=== PATIENT | female | born 1965 | race Caucasian/White ===

== ENCOUNTER 2018-03-15 19:12 | Emergency (ER) | payer BC ==
[2018-03-15 19:33] VITALS: BP 151/98; PULSE 77; TEMP 98.2; BMI 36.0
[2018-03-15 19:41] LABS: PH,URINE 5.5 (4.5-8); URINE APPEARANCE Clear; URINE BILIRUBIN Negative (NEGATIVE); URINE COLOR Yellow; URINE GLUCOSE (UA) Negative (NEGATIVE); URINE KETONE Negative (NEGATIVE); URINE LEUK ESTERASE Negative (NEGATIVE); URINE NITRITE Negative (NEGATIVE); URINE PROTEIN Negative (NEGATIVE); URINE UROBILINOGEN 0.2 (0.2-1.0)
--- NOTE | 2018-03-15 20:13 | PDOC ---
History of Present Illness - General History Source: Patient Exam Limitations: No Limitations - History of Present Illness Initial Comments: 03/15/18 21:01 The patient is a 52 year old female with a significant past medical history of HTN, HLD, hypothyroid, and restless leg syndrome who comes into the ED with back pain for several months and urinary retention for several weeks. Patient reports intermittent bilateral lower back pain with radiation to her flank, worsened on the left side. Patient notes her back pain is worsened when she gets out of bed. She states her back pain is progressively worsening and has now been constant for one month. She reports she developed urinary retention several weeks ago where she has no sensation to urinate until all of the sudden she gets an urge to go. Patient also reports intermittent nausea for the past several weeks and had 5 episodes of nonbloody vomiting on Sunday that has since resolved. Patient states she has been noncompliant to taking her medication and only takes her medication for restless leg syndrome. She also states she has not gotten her menstrual period for several months and is concerned she is going through menopause. Denies recent injury. Denies incontinence. Denies genital or lower extremity numbness/weakness/tingling. Denies fever or chills. Denies chest pain or shortness of breath. Denies abdominal pain, diarrhea, or hematochezia. Denies any other symptoms. Social hx: Denies the use of alcohol, tobacco or recreational drugs. <Basilio Glass - Last Filed: 03/15/18 22:19> <Mya Arboleda - Last Filed: 03/16/18 00:08> - General Chief Complaint: Pain, Acute Stated Complaint: LOWER BACK PAIN,POSS. URINARY TRACT INFECTION Time Seen by Provider: 03/15/18 19:55 Past History <Basilio Glass - Last Filed: 03/15/18 22:19> - Past Medical History COPD: No HTN: Yes Hypercholesterolemia: Yes Other medical history: RESTLESS LEG SYNDROME - Suicide/Smoking/Psychosocial Hx Smoking History: Never smoked Have you smoked in the past 12 months: No Information on smoking cessation initiated: No Hx Alcohol Use: Yes (OCCAS.) Drug/Substance Use Hx: No Substance Use Type: None <Mya Arboleda - Last Filed: 03/16/18 00:08> - Past Medical History Allergies/Adverse Reactions: Allergies Allergy/AdvReac Type Severity Reaction Status Date / Time No Known Allergies Allergy Verified 03/15/18 19:14 Home Medications: Ambulatory Orders Aliskiren/Hydrochlorothiazide [Tekturna Hct 300-12.5 Mg Tab] 1 each PO tablet 10/05/14 Amlodipine Bes/Olmesartan Med [Nat 10-20 Mg Tablet] 1 each PO tablet 10/05/14 B12/Levomefolate Calcium/B-6 [Folbic Rf Tablet] 1 each PO tablet 10/05/14 Cholecalciferol (Vitamin D3) [Vitamin D] 400 unit PO capsule 10/05/14 Levothyroxine Sodium [Synthroid] 50 mcg PO tablet 10/05/14 Nadolol [Corgard -] 40 mg PO tablet 10/05/14 Omeprazole 40 mg PO capsule 10/05/14 Pramipexole Di-HCl [Mirapex] 1 mg PO tablet 10/05/14 Rosuvastatin Calcium [Crestor] 5 mg PO tablet 10/05/14 Diclofenac Sodium [Voltaren -] 75 mg PO BID PRN #20 tablet. 03/15/18 Review of Systems - Review of Systems Able to Perform ROS?: Yes Comments:: 03/15/18 21:01 CONSTITUTIONAL: Absent: fever, chills, diaphoresis, generalized weakness, malaise, loss of appetite HEENT: Absent: rhinorrhea, nasal congestion, throat pain, throat swelling, difficulty swallowing, mouth swelling, ear pain, eye pain, visual Changes CARDIOVASCULAR: Absent: chest pain, syncope, palpitations, irregular heart rate, lightheadedness , peripheral edema RESPIRATORY: Absent: cough, shortness of breath, dyspnea with exertion, orthopnea, wheezing, stridor, hemoptysis GASTROINTESTINAL: + nausea, vomiting Absent: abdominal pain, abdominal distension, diarrhea, constipation, melena, hematochezia GENITOURINARY: + urinary retention Absent: dysuria, frequency, urgency, hesitancy, hematuria, flank pain, genital pain MUSCULOSKELETAL: + back pain Absent: joint swelling SKIN: Absent: rash, itching, pallor HEMATOLOGIC/IMMUNOLOGIC: Absent: easy bleeding, easy bruising, lymphadenopathy, frequent infections ENDOCRINE: Absent: unexplained weight gain, unexplained weight loss, heat intolerance, cold intolerance NEUROLOGIC: Absent: headache, focal weakness or paresthesias, dizziness, unsteady gait, seizure, mental status changes, bladder or bowel incontinence PSYCHIATRIC: Absent: anxiety, depression, suicidal or homicidal ideation, hallucinations. All Other Systems: Reviewed and Negative <Basilio Glass - Last Filed: 03/15/18 22:19> *Physical Exam - Vital Signs Last Vital Signs Temp Pulse Resp BP Pulse Ox 98.2 F 77 18 151/98 99 03/15/18 19:15 03/15/18 19:15 03/15/18 19:15 03/15/18 19:15 03/15/18 19:15 - Physical Exam Comments: 03/15/18 21:01 GENERAL: The patient is awake, alert, and fully oriented, in no acute distress. HEAD: Normal with no signs of trauma. EYES: Pupils equal, round and reactive to light, extraocular movements intact, sclera anicteric, conjunctiva clear with no pallor. ENT: Ears normal, nares patent, oropharynx clear without exudates. Moist mucous membranes. NECK: Normal range of motion, supple without lymphadenopathy, JVD, or masses. LUNGS: Breath sounds equal, clear to auscultation bilaterally. No wheeze/ crackles. HEART: Regular rate and rhythm, normal S1 and S2 without murmur or rub. ABDOMEN: Soft/nontender/nondistended. BS wnl. No guarding or rebound. No palpable masses. No hepatosplenomegaly. EXTREMITIES: Normal range of motion, no edema. No clubbing or cyanosis. No cords, erythema, or tenderness. No pain on straight leg raise bilaterally. BACK: + Mild tenderness of the central lower lumbar spine and sacroiliac joint bilaterally. Left CVA tenderness NEUROLOGICAL: Cranial nerves II through XII grossly intact. Normal speech, normal gait. PSYCH: Normal mood, normal affect. SKIN: Warm, Dry, normal turgor, no rashes or lesions noted. <Basilio Glass - Last Filed: 03/15/18 22:19> - Vital Signs Last Vital Signs Temp Pulse Resp BP Pulse Ox 98.2 F 77 18 151/98 99 03/15/18 19:15 03/15/18 19:15 03/15/18 19:15 03/15/18 19:15 03/15/18 19:15 <Mya Arboleda - Last Filed: 03/16/18 00:08> ED Treatment Course - ADDITIONAL ORDERS Additional order review: Laboratory Results 03/15/18 03/15/18 19:20 19:20 Urine Color Yellow Urine Appearance Clear Urine pH 5.5 Ur Specific [place] >= 1.030 H Urine Protein Negative Urine Glucose (UA) Negative Urine Ketones Negative Urine Blood 2+ H Urine Nitrite Negative Urine Bilirubin Negative Urine Urobilinogen 0.2 Ur Leukocyte Esterase Negative Urine RBC 5-10 Urine WBC 2-5 Ur Epithelial Cells Few Urine Bacteria Few Urine HCG, Qual Negative - Medications Given in the ED: ED Medications Discontinued Medications Generic Name Dose Route Start Last Admin Trade Name Dasha PRN Reason Stop Dose Admin Ketorolac Tromethamine 30 mg 03/15/18 20:24 03/15/18 20:32 Toradol Injection - IVPUSH 03/15/18 20:25 30 mg ONCE ONE Administration <Basilio Glass - Last Filed: 03/15/18 22:19> - ADDITIONAL ORDERS Additional order review: Laboratory Results 03/15/18 03/15/18 19:20 19:20 Urine Color Yellow Urine Appearance Clear Urine pH 5.5 Ur Specific [place] >= 1.030 H Urine Protein Negative Urine Glucose (UA) Negative Urine Ketones Negative Urine Blood 2+ H Urine Nitrite Negative Urine Bilirubin Negative Urine Urobilinogen 0.2 Ur Leukocyte Esterase Negative Urine HCG, Qual Negative - RADIOLOGY Radiology Studies Ordered: Category Date Time Status SPIRAL- RENAL-STONE CT [CT] Stat CT Scan 03/15/18 19:58 Ordered <Mya Arboleda - Last Filed: 03/16/18 00:08> Progress Note - Progress Note Progress Note: Documentation has been prepared under my direction and personally reviewed by me in its entirety. I attest that this documented accurately reflects all work, treatment, procedures and medical decision making performed by me. <Mya Arboleda - Last Filed: 03/16/18 00:08> Medical Decision Making - Medical Decision Making As noted above, this 52-year-old woman with a history of hypertension/ hyperlipidemia/restless leg syndrome presents with a few month history of bilateral lower back pain. There is some extension of the pain to the left flank area and patient admits that she is worried about "a problem with the kidney". She has not had any dysuria/hematuria. She has had some intermittent urinary urgency after not urinating for a long period of time during the day, but on closer questioning does not have persistent urinary retention symptoms. She denies pain/paresthesias/numbness of the groin or lower extremities. She has not taken any medication for her pain, stating that she "does not like taking medications". In fact, a few weeks ago, she stopped taking all her medications except the one that had been prescribed for her restless leg syndrome. Exam as noted Urinalysis positive for 3+ blood on dipstick and microscopic exam showed 5-10 RBCs/2-3 WBCs/few epi/few bacteria. Because of the presence of flank pain and microscopic hematuria, renal stone protocol CT performed to evaluate for ureteral stone. Urine C&S sent. CT spiral, renal stone protocol interpretation by Dr. Baxter of radiology staff : 1 mm nonobstructing left renal calculus. No ureteral stone noted. There was a 4 x 2.3 cm fluid attenuation intraluminal focus in the left middle abdominal small bowel loop without evidence of obstruction (no proximal bowel dilatation) . No other abnormality is solid organs or intestines seen. There was moderate to marked asymmetric L3-L4/L4L5 degenerative disc space narrowing. Toradol 30 mg IV given for analgesia, as well as 1 L normal saline IV. Patient felt significantly better after Toradol 30 mg IV. Clinical presentation most consistent with flareup of marked degenerative disc disease of the lower lumbar spine. Diclofenac 75 mg twice a prescription sent to her pharmacy. In the past, Dr. Barrios (who treats the patient for her restless leg syndrome) has also evaluated the patient for her lower back pain ( MRI performed 10/02/[address] Barrios). She should follow-up with him within the next 5-7 days. She should also follow up with her general medical doctor, , for full evaluation of the small intestine CT finding. She should return to the ER if her symptoms worsen. <Mya Arboleda - Last Filed: 03/16/18 00:08> *DC/Admit/Observation/Transfer - Attestations Scribe Attestion: 03/15/18 21:01 Documentation prepared by Basilio Glass, acting as anesthesiology medical doctor for Mya Arboleda MD <Basilio Glass - Last Filed: 03/15/18 22:19> <Mya Arboleda - Last Filed: 03/16/18 00:08> Diagnosis at time of Disposition: Lumbosacral disc disease - Discharge Dispostion Disposition: HOME Condition at time of disposition: Stable - Prescriptions Prescriptions: Diclofenac Sodium [Voltaren -] 75 mg PO BID PRN #[address] tablet[address] EDUARDO Reason: Back Pain - Referrals Referrals: Malik Barrios MD [Staff Physician] - - Patient Instructions Printed Discharge Instructions: Low Back Pain Additional Instructions: drink plenty of water continue medications as prescribed Diclofenac 75 twice a day as needed for pain;take with food followup with Dr Barrios within next 5 days regarding back pain followup with Dr Darling within 1 week Return to ER if you have severe pain/persistent difficulty urinating/groin numbness
[2018-03-15] MEDS ORDERED: SODIUM CHLORIDE 1,000 ML IV STA (20:24)
[2018-03-15] MEDS ORDERED: KETOROLAC TROMETHAMINE 30 MG/1 ML VIAL IVPUSH ONE (20:24)
[2018-03-15] MEDS ORDERED: KETOROLAC TROMETHAMINE 30 MG/1 ML VIAL ONE (20:27)
[2018-03-15 20:41] LABS: EPI CELLS FEW /HPF; URINE BACTERIA FEW /hpf (NEGATIVE)
== END 2018-03-15 22:01 | disposition home or self-care (01) ==
LOC: FER 19:12
PROC: 3E0333Z Introduction of Anti-inflammatory into Peripheral Vein, Percutaneous Approach (ICD-10-PCS; principal; 2018-03-15)
PROC: 3E0337Z Introduction of Electrolytic and Water Balance Substance into Peripheral Vein, Percutaneous Approach (ICD-10-PCS; 2018-03-15)
DX: M51.87 Other intervertebral disc disorders, lumbosacral region (principal); I10 Essential (primary) hypertension; E78.5 Hyperlipidemia, unspecified; G25.81 Restless legs syndrome
CPT/HCPCS: 74176; 81003; 81015; 84703; 87086; 99281-25; J7030

== ENCOUNTER 2018-12-21 21:23 | Emergency (ER) | payer BC ==
[2018-12-21] MEDS ORDERED: ONDANSETRON 4 MG/2 ML VIAL IVPB ONE (21:40)
[2018-12-21] MEDS ORDERED: morphine CARPU-JECT 2 MG/1 ML DISP.SYRIN IVPUSH ONE ×2 (21:40→23:50)
[2018-12-21] MEDS ORDERED: SODIUM CHLORIDE 1,000 ML IV ONE (21:40)
[2018-12-21] MEDS ORDERED: KETOROLAC TROMETHAMINE 30 MG/1 ML VIAL IVPUSH ONE (21:42)
[2018-12-21 21:46] VITALS: BP 175/100; PULSE 70; TEMP 98.2; BMI 36.8
[2018-12-21 21:51] LABS: HCG,QUALITATIVE URINE Negative
[2018-12-21] MEDS ORDERED: ONDANSETRON 4 MG/2 ML VIAL ONE (21:54)
[2018-12-21] MEDS ORDERED: KETOROLAC TROMETHAMINE 30 MG/1 ML VIAL ONE (21:54)
[2018-12-21] MEDS ORDERED: morphine SULFATE 4 MG/ML VIAL ONE (21:54)
[2018-12-21 22:12] LABS: BASO % 0.6 % (0-2.0); EOS % 1.8 % (0-4.5); HEMOGLOBIN 12.9 GM/dl (10.7-15.3); LYMPH % 14.5 % (8-40); MCHC 33.2 g/dl (32.0-36.0); MEAN CELL VOLUME 87.4 fl (80-96); MEAN PLT VOLUME 8.3 fl (7.5-11.1); MONO % 6.2 % (3.8-10.2); NEUT % 76.9 % (42.8-82.8); PLATELET COUNT 350 K/MM3 (134-434); RBC 4.46 M/mm3 (3.60-5.2); RDW 12.4 % (11.6-15.6); WHITE BLOOD COUNT 12.8 K/mm3 (4.0-10.8)
[2018-12-21 22:22] LABS: CALCIUM OXALATE CRYSTALS MODERATE /hpf (NONE SEEN); EPITHELIAL CELLS MODERATE /hpf
[2018-12-21 22:33] LABS: ALBUMIN 4.1 g/dl (3.4-5.0); BILIRUBIN,TOTAL 0.7 mg/dl (0.2-1); CALCIUM 8.8 mg/dl (8.5-10); CREATININE 0.7 mg/dl (0.55-1.3); POTASSIUM 3.7 mmol/L (3.5-5.1); TOT PROT 7.3 g/dl (6.4-8.2)
--- NOTE | 2018-12-21 23:45 | PDOC ---
Documentation entered by Jeni Mccall SCRIBE, acting as scribe for Roxana Reynoso MD. Roxana Reynoso MD: This documentation has been prepared by the Stefany appiah Xhesika, SCRIBE, under my direction and personally reviewed by me in its entirety. I confirm that the documentation accurately reflects all work, treatment, procedures, and medical decision making performed by me. History of Present Illness - General Chief Complaint: Pain Stated Complaint: RIGHT ABD PAIN Time Seen by Provider: 12/21/18 21:28 History Source: Patient Exam Limitations: No Limitations - History of Present Illness Initial Comments: 12/21/18 21:49 The patient is a 53 year old female, with a significant past medical history of HTN, HLD, hypothyroid, renal stones, and restless leg syndrome who presents to the emergency department with R flank pain and nausea. The patient states the pain began intermittently at her lower back with radiation to her flank, worsened on the right side.The patient states she was fine all day until after eating dinner which prompted her arrival to the ED. The patient denies chest pain, shortness of breath, headache or dizziness. The patient denies fever, chills, vomiting, diarrhea or constipation. The patient denies dysuria, frequency, urgency or hematuria. PAST SURGICAL HISTORY: no significant history FAMILY HISTORY: no pertinent history SOCIAL HISTORY: Pt lives with family and is employed. MEDICATIONS: reviewed ALLERGIES: As per nursing notes 12/21/18 23:39 Assessment and plan: This is a 53-year-old female who comes in complaining of right flank pain. Patient has history of renal colic in the past. Patient was very uncomfortable had some nausea but no vomiting. Patient had work up including CBC, comp, CAT scan. The CAT scan did show 1 mm stone distal UVJ area. Patient received fluids pain medications and there was no evidence of infection in her urine. Patient discharged with prescription for Percocet and will follow-up with her urologist. Past History - Past Medical History Allergies/Adverse Reactions: Allergies Allergy/AdvReac Type Severity Reaction Status Date / Time No Known Allergies Allergy Verified 03/15/18 19:14 Home Medications: Ambulatory Orders Aliskiren/Hydrochlorothiazide [Tekturna Hct 300-12.5 Mg Tab] 1 each PO DAILY tablet 10/05/14 Amlodipine Bes/Olmesartan Med [Nat 10-20 Mg Tablet] 1 each PO DAILY tablet Levothyroxine Sodium [Synthroid] 50 mcg PO DAILY tablet 10/05/14 Nadolol [Corgard -] 40 mg PO DAILY tablet 10/05/14 Omeprazole 40 mg PO DAILY capsule 10/05/14 Pramipexole Di-HCl [Mirapex] 1 mg PO DAILY tablet 10/05/14 Rosuvastatin Calcium [Crestor] 5 mg PO DAILY tablet 10/05/14 Ondansetron [Zofran *Odt*] 8 mg SL TID #12 od.tablet 12/21/18 Oxycodone HCl/Acetaminophen [Percocet 5-325 mg Tablet] 1 - 2 tab PO Q4H #12 tablet MDD 8 12/21/18 Pramipexole Dihydrochloride [Mirapex -] 1.5 mg PO HS 12/21/18 COPD: No HTN: Yes Hypercholesterolemia: Yes - Suicide/Smoking/Psychosocial Hx Smoking History: Never smoked Have you smoked in the past 12 months: No Hx Alcohol Use: Yes (OCCAS.) Drug/Substance Use Hx: No Substance Use Type: None Review of Systems - Review of Systems Able to Perform ROS?: Yes Comments:: 12/21/18 21:50 General: No fevers or chills, no weakness, no weight loss HEENT: No change in vision. No sore throat,. No ear pain CardioVascular: No chest pain or shortness of breath Respiratory:No cough, or wheezing. Gastrointestinal: no nausea, vomiting, diarrhea or constipation, No rectal bleeding Genitourinary: No dysuria, hematuria, or frequency Musculoskeletal: (+) R flank pain. No joint or muscle pain or swelling Neurologic: No headache, vertigo, dizziness or loss of consciousness Psychiatric: nor depression Skin: No rashes or easy bruising Endocrine: no increased thirst or abnormal weight change Allergic: no skin or latex allergy All other systems reviewed and normal *Physical Exam - Physical Exam Comments: 12/21/18 21:50 GENERAL: The patient is awake, alert, and fully oriented, in no acute distress. HEAD: Normal with no signs of trauma. EYES: Pupils equal, round and reactive to light, extraocular movements intact, sclera anicteric, conjunctiva clear. ABDOMEN: (+) R flank and R CVA tenderness on palpation. EXTREMITIES: Normal range of motion, no edema. NEUROLOGICAL: Normal speech, normal gait. PSYCH: Normal mood, normal affect. SKIN: Warm, Dry, normal turgor, no rashes or lesions noted. ED Treatment Course - LABORATORY CBC & Chemistry Diagram: 12/21/18 21:55 12/21/18 21:55 *DC/Admit/Observation/Transfer Diagnosis at time of Disposition: Renal colic on right side - Discharge Dispostion Disposition: HOME Condition at time of disposition: Good Decision to Admit order: No - Referrals Referrals: Anthony Darling MD [Primary Care Provider] - - Patient Instructions Printed Discharge Instructions: DI for Prescription Opioid Use Additional Instructions: For the pain U can take ibuprofen or Aleve. However if you need something stronger U can take Percocet one or 2 tablets every 4-6 hours as needed. For the nausea take Zofran 1 tablet as often as 3 times a day. Stay well-hydrated drink plenty of fluids. Return to the emergency department immediately with ANY new, persistent or worsening symptoms. Continue any medications as previously prescribed by your physician. You should follow up with your primary doctor as soon as possible regarding today's emergency department visit. . Please make sure your doctor reviews the results of your emergency evaluation. Thank you for coming to the Emergency Department today for your care. It was a pleasure to see you today. Please note that your evaluation is INCOMPLETE until you follow-up with your doctor. - Post Discharge Activity
[2018-12-22] MEDS ORDERED: morphine SULFATE 4 MG/ML VIAL ONE (00:09)
== END 2018-12-22 00:26 | disposition home or self-care (01) ==
LOC: FER 21:23
PROC: 3E0333Z Introduction of Anti-inflammatory into Peripheral Vein, Percutaneous Approach (ICD-10-PCS; principal; 2018-12-21)
PROC: 3E033NZ Introduction of Analgesics, Hypnotics, Sedatives into Peripheral Vein, Percutaneous Approach (ICD-10-PCS; 2018-12-21)
PROC: 3E033GC Introduction of Other Therapeutic Substance into Peripheral Vein, Percutaneous Approach (ICD-10-PCS; 2018-12-21)
PROC: 3E0337Z Introduction of Electrolytic and Water Balance Substance into Peripheral Vein, Percutaneous Approach (ICD-10-PCS; 2018-12-21)
DX: N20.0 Calculus of kidney (principal); I10 Essential (primary) hypertension; E78.00 Pure hypercholesterolemia, unspecified; E78.5 Hyperlipidemia, unspecified; E03.9 Hypothyroidism, unspecified; G25.81 Restless legs syndrome
CPT/HCPCS: 36415; 74176-TC; 80053; 81003; 81015; 84703; 85025; 99283-25; J7030

== ENCOUNTER 2020-09-27 04:16 | Day surgery (SDC) | payer BC ==
[2020-09-23 09:46] VITALS: BMI 36.8
[2020-09-27] MEDS ORDERED: MIDAZOLAM HCL 2 MG/2 ML SINGLE DOSE VIAL ONE ×3 (09:53→09:56)
[2020-09-27] MEDS ORDERED: DEXAMETHASONE SOD PHOSPHATE 4 MG/1 ML VIAL ONE (09:55)
[2020-09-27 10:26] VITALS: TEMP 97.8
[2020-09-27 12:19] VITALS: BP 122/76; PULSE 64
== END 2020-09-27 12:05 | disposition home or self-care (01) ==
LOC: JASU-SURG 04:16
PROVIDERS: ATTEND Urology
PROC: 0TF4XZZ Fragmentation in Left Kidney Pelvis, External Approach (ICD-10-PCS; principal; 2020-09-27 10:00)
DX: N20.0 Calculus of kidney (principal)

== ENCOUNTER 2020-12-06 04:35 | Day surgery (SDC) | payer BC ==
[2020-12-03 10:57] VITALS: BMI 36.8
[2020-12-06] MEDS ORDERED: PROPOFOL 20 ML ONE ×2 (14:48→15:08)
[2020-12-06] MEDS ORDERED: MIDAZOLAM HCL 2 MG/2 ML SINGLE DOSE VIAL ONE (14:48)
[2020-12-06 18:04] VITALS: BP 127/75; PULSE 80; TEMP 98
== END 2020-12-06 16:40 | disposition home or self-care (01) ==
LOC: JASU-SURG 04:35
PROVIDERS: ATTEND Urology
PROC: 0TF3XZZ Fragmentation in Right Kidney Pelvis, External Approach (ICD-10-PCS; principal; 2020-12-06 14:00)
DX: N20.0 Calculus of kidney (principal)

== ENCOUNTER 2021-01-17 05:03 | Day surgery (SDC) | payer BC ==
[2021-01-12 16:06] VITALS: BMI 37.3
[2021-01-17 08:47] VITALS: TEMP 97.6
[2021-01-17 09:45] VITALS: BP 131/82; PULSE 68
== END 2021-01-17 10:15 | disposition home or self-care (01) ==
LOC: JASU-ENDO 05:03
PROVIDERS: ATTEND Internal Medicine Gastroenterology
PROC: 0DBB8ZX Excision of Ileum, Via Natural or Artificial Opening Endoscopic, Diagnostic (ICD-10-PCS; 2021-01-17)
PROC: 0DB98ZX Excision of Duodenum, Via Natural or Artificial Opening Endoscopic, Diagnostic (ICD-10-PCS; 2021-01-17)
PROC: 0DB78ZX Excision of Stomach, Pylorus, Via Natural or Artificial Opening Endoscopic, Diagnostic (ICD-10-PCS; 2021-01-17)
PROC: 0DB28ZX Excision of Middle Esophagus, Via Natural or Artificial Opening Endoscopic, Diagnostic (ICD-10-PCS; 2021-01-17)
PROC: 0DBH8ZX Excision of Cecum, Via Natural or Artificial Opening Endoscopic, Diagnostic (ICD-10-PCS; principal; 2021-01-17 08:00)
DX: Z12.11 Encounter for screening for malignant neoplasm of colon (principal); Z87.19 Personal history of other diseases of the digestive system; K44.9 Diaphragmatic hernia without obstruction or gangrene; K31.7 Polyp of stomach and duodenum; K21.9 Gastro-esophageal reflux disease without esophagitis; R10.13 Epigastric pain
CPT/HCPCS: 88305-TC; 88342-TC

== ENCOUNTER 2022-02-28 17:58 | Emergency (ER) | payer BC, OTHER ==
[2022-02-28 18:40] VITALS: BP 125/85; PULSE 99; RESP 18; TEMP 98; BMI 36.0
[2022-02-28] MEDS ORDERED: KETOROLAC TROMETHAMINE 30 MG/1 ML VIAL IM ONE (19:08)
[2022-02-28] MEDS ORDERED: LIDOCAINE 5% TOPICAL PATCH TP ONE (19:09)
[2022-02-28] MEDS ORDERED: KETOROLAC TROMETHAMINE 30 MG/1 ML VIAL ONE (19:41)
[2022-02-28] MEDS ORDERED: LIDOCAINE 5% TOPICAL PATCH ONE (19:41)
[2022-03-01] MEDS ORDERED: LIDOCAINE PATCH REMOVAL MC SCH (07:00)
== END 2022-02-28 19:55 | disposition home or self-care (01) ==
LOC: JERFT 17:58
PROC: 3E023GC Introduction of Other Therapeutic Substance into Muscle, Percutaneous Approach (ICD-10-PCS; principal; 2022-02-28)
DX: M54.2 Cervicalgia (principal); M54.50 Low back pain, unspecified; M25.511 Pain in right shoulder; V49.40XA Driver injured in collision with unspecified motor vehicles in traffic accident, initial encounter
CPT/HCPCS: 72050-TC-FY; 73030-TC-RT-FY; 99284-25

== ENCOUNTER 2022-11-01 03:58 | Day surgery (SDC) | payer BC, OTHER ==
[2022-10-30 13:54] VITALS: BMI 36.0
[2022-11-01] MEDS ORDERED: ROPIVACAINE HCL 0.5% 30ML VIAL ONE (09:40)
[2022-11-01] MEDS ORDERED: DEXAMETHASONE SOD PHOSPHATE 10 MG/1 ML VIAL ONE (09:40)
[2022-11-01] MEDS ORDERED: MIDAZOLAM HCL 2 MG/2 ML SINGLE DOSE VIAL ONE (09:41)
[2022-11-01] MEDS ORDERED: PROPOFOL 20 ML ONE (10:40)
[2022-11-01] MEDS ORDERED: ONDANSETRON 4 MG/2 ML VIAL ONE (10:47)
[2022-11-01] MEDS ORDERED: DEXAMETHASONE SOD PHOSPHATE 4 MG/1 ML VIAL ONE (10:47)
[2022-11-01] MEDS ORDERED: ceFAZolin SODIUM 1 GM VIAL ONE (10:47)
[2022-11-01] MEDS ORDERED: ceFAZolin SODIUM 1 GM VIAL IVPB ONE (10:51)
[2022-11-01] MEDS ORDERED: SUCCINYLCHOLINE CHLORIDE 200 MG/10 ML SYRINGE ONE (10:53)
[2022-11-01] MEDS ORDERED: ONDANSETRON 4 MG/2 ML VIAL IVPUSH PRN (11:40)
[2022-11-01] MEDS ORDERED: oxyCODONE HCL 5 MG TABLET PO PRN (11:40)
[2022-11-01] MEDS ORDERED: LACTATED RINGERS SOLUTION 1,000 ML IV SCH (11:45)
[2022-11-01 13:36] VITALS: RESP 20
[2022-11-01] MEDS ORDERED: oxyCODONE HCL 5 MG TABLET ONE (13:40)
[2022-11-01] MEDS ORDERED: oxyCODONE HCL 5 MG TABLET PO ONE (13:45)
[2022-11-01 15:44] VITALS: BP 130/88; PULSE 81; TEMP 98.7
== END 2022-11-01 15:50 | disposition home or self-care (01) ==
LOC: JASU-SURG 03:58
PROVIDERS: ATTEND Orthopaedic Surgery
PROC: 0RNJ4ZZ Release Right Shoulder Joint, Percutaneous Endoscopic Approach (ICD-10-PCS; principal; 2022-11-01 10:30)
DX: M75.121 Complete rotator cuff tear or rupture of right shoulder, not specified as traumatic (principal); X58.XXXA Exposure to other specified factors, initial encounter; Y92.9 Unspecified place or not applicable; Y93.9 Activity, unspecified
CPT/HCPCS: 29826; 29827; C1713; 94760; J1100

== ENCOUNTER 2024-10-02 09:00 | Emergency (ER) | payer BC ==
[2024-10-02 09:16] VITALS: BP 167/78; PULSE 85; RESP 16; TEMP 98.4; BMI 38.7
[2024-10-02] MEDS: ACETAMINOPHEN 325 MG TABLET (FP) PO ONE (10:20)
[2024-10-02] MEDS ORDERED: ACETAMINOPHEN 650 MG/20.3 ML ORAL SOLUTION (CUPS) ONE (10:22)
== END 2024-10-02 12:35 | disposition home or self-care (01) ==
LOC: SUPCPDRO 09:00 → FER 09:00
DX: M25.561 Pain in right knee (principal)
CPT/HCPCS: 73562-TC-RT-FY; 93971-TC; 99284-25